=== PATIENT | female | born 1990 ===

== ENCOUNTER 2017-11-20 11:30 | Emergency (ER) | payer SELFPAY ==
[2017-11-20 11:38] VITALS: BMI 26.4
[2017-11-20 11:41] VITALS: BP 113/68; PULSE 80; RESP 18; TEMP 99; O2SAT 98
--- NOTE | 2017-11-20 11:45 | ED PDOC ---
Arrival/HPI - General Historian: Patient - History of Present Illness Time/Duration: < week Symptom Onset: Sudden Symptom Course: Worsening Quality: Aching Severity Level: 10 - General Chief Complaint: ENT Problem Time Seen by Provider: 11/20/17 11:32 - History of Present Illness Narrative History of Present Illness (Text): Patient is a 27 year old female with no significant past medical history presenting to the ED with left ear pain. Patient states that the ear pain started 5 days ago and has been getting worse. She describes the pain to be achy and 10/10 in severity. She admits to be using Q-tips a lot to clean her ears and tried over the counter earwax removal drops to try and treat the pain. She denies going swimming, having sick contacts, or recent travels. Patient admits to have decreased hearing on the left ear and have some headaches. She denies fevers, chills, cough, shortness of breath, chest pain, abdominal pain, or urinary symptoms. (Raza Rosa) Past Medical History - Provider Review Nursing Documentation Reviewed: Yes - Travel History Have you recently traveled outside [place] w/in the past 3 mons?: No - Past History Past History: No Previous - Infectious Disease Hx of Infectious Diseases: None - Pulmonary Hx Asthma: Yes - Psychiatric Hx Substance Use: No - Surgical History Hx Section: Yes (x1) Hx Tubal Ligation: Yes - Anesthesia Hx Anesthesia: Yes Hx Anesthesia Reactions: No Hx Malignant Hyperthermia: No Family/Social History - Physician Review Nursing Documentation Reviewed: Yes Family/Social History: No Known Family HX Smoking Status: Never Smoked Hx Alcohol Use: No Hx Substance Use: No Hx Substance Use Treatment: No Allergies/Home Meds Allergies/Adverse Reactions: Allergies No Known Allergies Allergy (Verified 11/20/17 11:37) Review of Systems - Physician Review All systems were reviewed & negative as marked: Yes - Review of Systems Constitutional: Normal. absent: Fevers, Night Sweats Eyes: Normal ENT: Hearing Changes (Decreased hearing on the left). absent: Tinnitus, TMJ Pain, Sore Throat, Rhinorrhea, Sinus Congestion Respiratory: Normal. absent: SOB, Cough, Sputum, Wheezing Cardiovascular: Normal. absent: Chest Pain Gastrointestinal: Normal. absent: Abdominal Pain, Constipation, Diarrhea, Nausea, Vomiting Genitourinary Female: Normal. absent: Dysuria, Frequency, Hematuria Musculoskeletal: Normal Skin: Normal. absent: Rash, Pruritis, Skin Lesions Neurological: Headache. absent: Dizziness Endocrine: Normal Hemo/Lymphatic: Normal Psychiatric: Normal. absent: Anxiety, Depression Physical Exam Vital Signs Reviewed: Yes Temperature: Afebrile Blood Pressure: Normal Pulse: Regular Respiratory Rate: Normal Appearance: Positive for: Well-Appearing, Non-Toxic, Uncomfortable Pain Distress: Severe Mental Status: Positive for: Alert and Oriented X 3 - Systems Exam Head: Present: Atraumatic, Normocephalic Pupils: Present: PERRL Extroacular Muscles: Present: EOMI Conjunctiva: Present: Normal Ears: Present: TM Perf (Perforated tympanic membrane on the left ear), Other ( Some cerumen and yellow discharge seen on left ear. Left pinna is slightly tender to palpation). No: Normal, NORMAL TM, Erythema, TM Bulging, Fluid Mouth: Present: Moist Mucous Membranes Neck: Present: Normal Range of Motion. No: MIDLINE TENDERNESS Respiratory/Chest: Present: Clear to Auscultation, Good Air Exchange. No: Respiratory Distress, Accessory Muscle Use Cardiovascular: Present: Regular Rate and Rhythm, Normal S1, S2. No: Murmurs Abdomen: No: Tenderness, Distention, Peritoneal Signs Upper Extremity: Present: Normal Inspection. No: Cyanosis, Edema Lower Extremity: Present: Normal Inspection. No: Edema Neurological: Present: GCS=15, CN II-XII Intact, Speech Normal Skin: Present: Warm, Dry, Normal Color. No: Rashes Lymphatic: No: Cervical Adenopathy Psychiatric: Present: Alert, Oriented x 3, Normal Insight, Normal Concentration Vital Signs Temp Pulse Resp BP Pulse Ox 11/20/17 11:40 99.0 F 80 18 113/68 98 Medical Decision Making ED Course and Treatment: Impression: Patient is a 27 year old female presenting to the ED with left ear pain. Differential Diagnosis included but are not limited to: - Otitis media - Otitis externa - Perforated tympanic membrane Plan: -- Ampicillin -- Ciprofloxacin/dexamethasone ear drops -- Tylenol Progress Notes: 11/20/17 12:19 - Sent patient home with amoxicillin and ciprodex ear drops. - Patient referred to ENT. - Patient is stable for discharge. (Raza Rosa) 11/20/17 12:27 Seen by resident and then evaluated by me. Normal oropharyngeal exam. Left TM : external pinna tenderness, no mastoid tenderness. Canal is narrowed with debris in canal with perforated tm. Right TM WNL. Patient denies recent swimming or trauma to ear. Unclear if this is otitis media that caused rupture of canal or simply otitis externa. Therefore will treat with drops and antibiotics. (Lynette Menezes) - Medication Orders Current Medication Orders: Discontinued Medications Acetaminophen (Tylenol 325mg Tab) 650 mg PO STAT STA Stop: 11/20/17 11:59 Disposition/Present on Arrival - Present on Arrival Any Indicators Present on Arrival: No History of DVT/PE: No History of Uncontrolled Diabetes: No Urinary Catheter: No History of Decub. Ulcer: No History Surgical Site Infection Following: None - Disposition Have Diagnosis and Disposition been Completed?: Yes Disposition Time: 12:17 Patient Plan: Discharge - Disposition Diagnosis: Perforated tympanic membrane, Otitis media Disposition: HOME/ ROUTINE Patient Problems: Current Active Problems Problem Status Onset Perforated tympanic membrane Acute Otitis media Acute Condition: GOOD Discharge Instructions (ExitCare): Ear Infections (Otitis Media), Ruptured Eardrum, Ruptured Eardrum (DC) Print Language: BELGIAN Additional Instructions: Follow-up with PMD within 2 days. Return to ED if condition worsens. Take full course of antibiotics and drops Prescriptions: Amoxicillin 500 mg PO TID #30 tablet Ciprofloxacin/Dexamethasone [Ciprodex 0.3%-0.1% 7.5 Ml] 3 drop BID #1 bottle Referrals: Aaron Zamorano DO [Staff Provider] - Follow up with primary Tamara Pablo MD [Medical Doctor] - Follow up with primary Forms: [employer] (Salvadorean)
== END 2017-11-20 12:45 | disposition home or self-care (01) ==
LOC: ED 11:30
DX: H66.92 Otitis media, unspecified, left ear (principal); H72.92 Unspecified perforation of tympanic membrane, left ear

== ENCOUNTER 2017-12-18 14:24 | Emergency (ER) | payer SELFPAY ==
[2017-12-18 14:25] VITALS: BMI 26.4
--- NOTE | 2017-12-18 14:34 | ED PDOC ---
Arrival/HPI - General Time Seen by Provider: 12/18/17 14:34 - History of Present Illness Narrative History of Present Illness (Text): 12/18/17 14:34 Past Medical History - Past History Past History: No Previous - Infectious Disease Hx of Infectious Diseases: None - Pulmonary Hx Asthma: Yes - Psychiatric Hx Substance Use: No - Surgical History Hx Section: Yes (x1) Hx Tubal Ligation: Yes - Anesthesia Hx Anesthesia: Yes Hx Anesthesia Reactions: No Hx Malignant Hyperthermia: No Family/Social History Smoking Status: Never Smoked Hx Alcohol Use: No Hx Substance Use: No Hx Substance Use Treatment: No Allergies/Home Meds Allergies/Adverse Reactions: Allergies No Known Allergies Allergy (Verified 11/20/17 11:37) Medical Decision Making ED Course and Treatment: 12/18/17 14:34 Impression: Differential Diagnosis included but are not limited to: Plan: -- Reassess and disposition Prior Visits: Notes and results from previous visits were reviewed. Progress Notes: - Scribe Statement The provider has reviewed the documentation as recorded by the Scribe Rocky Lopez Provider Scribe Attestation: All medical record entries made by the Scribe were at my direction and personally dictated by me. I have reviewed the chart and agree that the record accurately reflects my personal performance of the history, physical exam, medical decision making, and the department course for this patient. I have also personally directed, reviewed, and agree with the discharge instructions and disposition. Disposition/Present on Arrival - Present on Arrival History of DVT/PE: No History of Uncontrolled Diabetes: No Urinary Catheter: No History Surgical Site Infection Following: None - Disposition
[2017-12-18] MEDS ORDERED: Albuterol 0.083% Inhal Sol (2.5 mg/3 mL) UD ONE (14:45)
[2017-12-18] MEDS ORDERED: Albuterol-Ipratrop 3 mg / 0.5 (3 ml) UD IH STA (15:13)
[2017-12-18] MEDS ORDERED: Albuterol-Ipratrop 3 mg / 0.5 (3 ml) UD ONE (15:19)
--- NOTE | 2017-12-18 17:18 | ED PDOC ---
Arrival/HPI - General Historian: Patient - History of Present Illness Narrative History of Present Illness (Text): 12/18/17 17:15 27yo female with pmhx of Asthma who present with complaint of Nonproductive cough x one week, which is her typical asthma symptom. States she used her inhaler today without relieve and decided to come to the ED. She also complain of neck pain x 2weeks. Notes pain is with lateral movement of her neck. States she has been taking Ibuprofen 400mg with some relieve. She denies fever, chills, chest pain, sick contact, rash, nuchal rigidity, nausea, vomiting, abdominal pain, any other complaint. <Kelli Oliva A - Last Filed: 12/18/17 19:13> <Katty Will - Last Filed: 12/23/17 06:23> - General Chief Complaint: Shortness Of Breath Time Seen by Provider: 12/18/17 14:34 Past Medical History - Provider Review Nursing Documentation Reviewed: Yes - Past History Past History: No Previous - Infectious Disease Hx of Infectious Diseases: None - Cardiac Hx Cardiac Disorders: No - Pulmonary Hx Respiratory Disorders: Yes Hx Asthma: Yes - Neurological Hx Neurological Disorder: No - HEENT Hx HEENT Disorder: Yes Other/Comment: OTITIS - Renal Hx Renal Disorder: No - Endocrine/Metabolic Hx Endocrine Disorders: No - Hematological/Oncological Hx Blood Disorders: No - Integumentary Hx Dermatological Disorder: No - Musculoskeletal/Rheumatological Hx Musculoskeletal Disorders: No - Gastrointestinal Hx Gastrointestinal Disorders: No - Genitourinary/Gynecological Hx Genitourinary Disorders: No - Psychiatric Hx Psychophysiologic Disorder: No Hx Substance Use: No - Surgical History Hx Section: Yes Hx Tubal Ligation: Yes - Anesthesia Hx Anesthesia: Yes Hx Anesthesia Reactions: No Hx Malignant Hyperthermia: No <DirphucHappiness A - Last Filed: 12/18/17 19:13> Family/Social History - Physician Review Nursing Documentation Reviewed: Yes Family/Social History: Unknown Family HX Smoking Status: Never Smoked Hx Alcohol Use: No Hx Substance Use: No Hx Substance Use Treatment: No <DiruHappiness A - Last Filed: 12/18/17 19:13> Allergies/Home Meds <DirphucHappiness A - Last Filed: 12/18/17 19:13> <Katty Will - Last Filed: 12/23/17 06:23> Allergies/Adverse Reactions: Allergies No Known Allergies Allergy (Verified 12/18/17 14:36) Home Medications: Home Meds Medication Instructions Recorded Confirmed Albuterol 0.083% [Albuterol 0.083% 3 ml NEB Q6 PRN 12/18/17 12/18/17 Inhal [place] (2.5 mg/3 ml) UD] Review of Systems - Physician Review All systems were reviewed & negative as marked: Yes - Review of Systems Constitutional: Normal Eyes: Normal ENT: Normal Respiratory: Cough. absent: Sputum Cardiovascular: Normal Gastrointestinal: Normal Genitourinary Female: Normal Musculoskeletal: Neck Pain Skin: Normal Neurological: Normal Endocrine: Normal Hemo/Lymphatic: Normal Psychiatric: Normal <Diru,Happiness A - Last Filed: 12/18/17 19:13> Physical Exam Vital Signs Reviewed: Yes Vital Signs Temp Pulse Resp BP Pulse Ox 12/18/17 14:50 14 12/18/17 14:37 98.3 F 110 H 21 113/67 97 Temperature: Afebrile Blood Pressure: Normal Pulse: Regular Respiratory Rate: Normal Appearance: Positive for: Well-Appearing, Non-Toxic, Comfortable Pain Distress: None Mental Status: Positive for: Alert and Oriented X 3 - Systems Exam Head: Present: Atraumatic, Normocephalic Pupils: Present: PERRL Extroacular Muscles: Present: EOMI Conjunctiva: Present: Normal Mouth: Present: Moist Mucous Membranes Neck: Present: Normal Range of Motion. No: Meningeal Signs, MIDLINE TENDERNESS, Paraspinal Tenderness Respiratory/Chest: Present: Clear to Auscultation, Good Air Exchange, Wheezes (Mild wheeze at the bases). No: Respiratory Distress, Accessory Muscle Use, Decreased Breath Sounds, Rales, Retracting, Rhonchi Cardiovascular: Present: Regular Rate and Rhythm, Normal S1, S2. No: Murmurs Abdomen: No: Tenderness, Distention, Peritoneal Signs Back: Present: Normal Inspection Upper Extremity: Present: Normal Inspection. No: Cyanosis, Edema Lower Extremity: Present: Normal Inspection. No: Edema Neurological: Present: GCS=15, CN II-XII Intact, Speech Normal Skin: Present: Warm, Dry, Normal Color. No: Rashes Psychiatric: Present: Alert, Oriented x 3, Normal Insight, Normal Concentration <Diru,Happiness A - Last Filed: 12/18/17 19:13> Vital Signs Temp Pulse Resp BP Pulse Ox 12/18/17 17:40 98.6 F 72 18 121/70 98 12/18/17 14:50 14 12/18/17 14:37 98.3 F 110 H 21 113/67 97 <Katty Will - Last Filed: 12/23/17 06:23> Medical Decision Making ED Course and Treatment: 12/18/17 19:14 PT in ED for stated history. She was not in any respiratory distress on presentation. She had mild expiratory wheeze on exam. She was treated with Duoneb x 3 and prednisone. On re evaluation her lung was CTA b/l. She was speaking in full sentence and notes that her symptoms resolved. Her neck was supple and she had no meningeal signs. LS xray IMPRESSION: Normal cervical spine radiographs Result was DW the pt. She was DC home with Ibuprofen and flexeril for MS pain. Prednisone was given for her asthma and she was advised to continue with her inhaler as needed. Referred to her PMD/clinic. TRT ED for any new or worsening symptoms - RAD Interpretation Radiology Orders: 12/18/17 15:14 CERVICAL SPINE >18YR W/OBLIQUE [RAD] Stat - Medication Orders Current Medication Orders: Discontinued Medications Albuterol/Ipratropium (Duoneb 3 Mg/0.5 Mg (3 Ml) Ud) 3 ml IH Q15M STA Stop: 12/18/17 15:14 Last Admin: 12/18/17 15:19 Dose: 3 ml Prednisone (Prednisone Tab) 60 mg PO STAT ONE Stop: 12/18/17 15:14 Last Admin: 12/18/17 15:26 Dose: 60 mg <Kelli Oliva - Last Filed: 12/18/17 19:13> - RAD Interpretation Radiology Orders: 12/18/17 15:14 CERVICAL SPINE >18YR W/OBLIQUE [RAD] Stat - Medication Orders Current Medication Orders: Discontinued Medications Albuterol/Ipratropium (Duoneb 3 Mg/0.5 Mg (3 Ml) Ud) 3 ml IH Q15M STA Stop: 12/18/17 15:14 Last Admin: 12/18/17 15:19 Dose: 3 ml Ketorolac Tromethamine (Toradol) 30 mg IM STAT STA Stop: 12/18/17 17:23 Prednisone (Prednisone Tab) 60 mg PO STAT ONE Stop: 12/18/17 15:14 Last Admin: 12/18/17 15:26 Dose: 60 mg <Katty Will - Last Filed: 12/23/17 06:23> - PA / CLIENT TECHNOLOGIES SPECIALIST / Resident Statement / has reviewed & agrees with the documentation as recorded. <Katty Will - Last Filed: 12/23/17 06:23> Disposition/Present on Arrival - Present on Arrival Any Indicators Present on Arrival: No History of DVT/PE: No History of Uncontrolled Diabetes: No Urinary Catheter: No History of Decub. Ulcer: No History Surgical Site Infection Following: None - Disposition Have Diagnosis and Disposition been Completed?: Yes Disposition Time: 17:25 Patient Plan: Discharge <Kelli Oliva - Last Filed: 12/18/17 19:13> <Katty Will - Last Filed: 12/23/17 06:23> - Disposition Diagnosis: Cervical sprain, Asthma Disposition: HOME/ ROUTINE Condition: STABLE Discharge Instructions (ExitCare): Asthma in Adults, Cervical Muscle Strain (DC) Additional Instructions: Follow up with your doctor/clinic Return to ED for any new or worsening symptoms Prescriptions: Cyclobenzaprine [Cyclobenzaprine HCl] 10 mg PO BID #10 tab RX: Ibuprofen [Ibu] 400 mg PO Q6 #15 tablet RX: Prednisone 50 mg PO DAILY #4 tablet Referrals: Tamara Pablo MD [Medical Doctor] - Follow up with primary Forms: [employer] (Burkinan)
[2017-12-18 17:44] VITALS: BP 121/70; PULSE 72; RESP 18; TEMP 98.6; O2SAT 98
--- NOTE | 2017-12-18 17:48 | RAD ---
Date of service: 12/18/2017 PROCEDURE: Cervical Spine Radiographs. HISTORY: Pain. No history of recent/ related trauma provided COMPARISON: None. FINDINGS: BONES: Alignment maintained. No fracture. Dens Intact. DISC SPACES: Normal. SOFT TISSUES: Normal. No prevertebral soft tissue swelling. OTHER FINDINGS: None. IMPRESSION: Normal cervical spine radiographs
== END 2017-12-18 17:44 | disposition home or self-care (01) ==
LOC: ED 14:24
DX: J45.909 Unspecified asthma, uncomplicated (principal); S13.4XXA Sprain of ligaments of cervical spine, initial encounter; X58.XXXA Exposure to other specified factors, initial encounter; Y92.9 Unspecified place or not applicable

== ENCOUNTER 2018-05-28 13:27 | Emergency (ER) | payer SELFPAY ==
[2018-05-28 13:55] VITALS: BMI 25.7
[2018-05-28 13:59] VITALS: RESP 18; TEMP 98.5
[2018-05-28 14:42] VITALS: BP 108/76; PULSE 88; O2SAT 98
--- NOTE | 2018-05-28 15:58 | ED PDOC ---
Arrival/HPI - General Chief Complaint: ENT Problem Historian: Patient - History of Present Illness Narrative History of Present Illness (Text): 05/28/18 15:57 Patient is a 27 year old female, with a past medical history of asthma, who presents to the emergency department complaining of bilateral eye redness since yesterday. Patient states she feels as if both eyes were "glued shut". Patient also notes mild headache which is described as not worst of life. Patient informs of sick contact with her 3 children who have similar symptoms. Patient denies fever, headache, dizziness, neck stiffness, changes in vision, abdominal pain, nausea, vomiting, diarrhea, back pain, neck pain, or any other complaint. Time/Duration: 24 hours Symptom Onset: Gradual Symptom Course: Unchanged Activities at Onset: Light Context: Home Past Medical History - Provider Review Nursing Documentation Reviewed: Yes - Past History Past History: No Previous - Infectious Disease Hx of Infectious Diseases: None - Cardiac Hx Cardiac Disorders: No - Pulmonary Hx Respiratory Disorders: Yes Hx Asthma: Yes - Neurological Hx Neurological Disorder: No - HEENT Hx HEENT Disorder: Yes Other/Comment: OTITIS - Renal Hx Renal Disorder: No - Endocrine/Metabolic Hx Endocrine Disorders: No - Hematological/Oncological Hx Blood Disorders: No - Integumentary Hx Dermatological Disorder: No - Musculoskeletal/Rheumatological Hx Musculoskeletal Disorders: No - Gastrointestinal Hx Gastrointestinal Disorders: No - Genitourinary/Gynecological Hx Genitourinary Disorders: No - Psychiatric Hx Psychophysiologic Disorder: No Hx Substance Use: No - Surgical History Hx Section: Yes (x1) Hx Tubal Ligation: Yes - Anesthesia Hx Anesthesia: Yes Hx Anesthesia Reactions: No Hx Malignant Hyperthermia: No Family/Social History - Physician Review Nursing Documentation Reviewed: Yes Family/Social History: Unknown Family HX Smoking Status: Never Smoked Hx Alcohol Use: No Hx Substance Use: No Hx Substance Use Treatment: No Allergies/Home Meds Allergies/Adverse Reactions: Allergies No Known Allergies Allergy (Verified 05/28/18 13:56) Review of Systems - Physician Review All systems were reviewed & negative as marked: Yes - Review of Systems Constitutional: absent: Fevers Eyes: Other (eye redness bilaterally). absent: Vision Changes ENT: absent: Other (neck stiffness) Gastrointestinal: absent: Abdominal Pain, Diarrhea, Nausea, Vomiting Musculoskeletal: absent: Back Pain, Neck Pain Neurological: absent: Headache, Dizziness Physical Exam Vital Signs Reviewed: Yes Vital Signs Temp Pulse Resp BP Pulse Ox 05/28/18 14:42 88 18 108/76 98 05/28/18 13:58 98.5 F 90 18 107/69 100 Temperature: Afebrile Blood Pressure: Normal Pulse: Regular Respiratory Rate: Normal Appearance: Positive for: Well-Appearing, Non-Toxic, Comfortable Pain Distress: None Mental Status: Positive for: Alert and Oriented X 3 - Systems Exam Head: Present: Atraumatic, Normocephalic Pupils: Present: PERRL Extroacular Muscles: Present: EOMI Conjunctiva: Present: Injected (bilaterally) Mouth: Present: Moist Mucous Membranes Neck: Present: Normal Range of Motion Respiratory/Chest: Present: Clear to Auscultation, Good Air Exchange. No: Respiratory Distress, Accessory Muscle Use Cardiovascular: Present: Regular Rate and Rhythm, Normal S1, S2. No: Murmurs Abdomen: No: Tenderness, Distention, Peritoneal Signs Back: Present: Normal Inspection Upper Extremity: Present: Normal Inspection. No: Cyanosis, Edema Lower Extremity: Present: Normal Inspection. No: Edema Neurological: Present: GCS=15, CN II-XII Intact, Speech Normal Skin: Present: Warm, Dry, Normal Color. No: Rashes Psychiatric: Present: Alert, Oriented x 3, Normal Insight, Normal Concentration Medical Decision Making ED Course and Treatment: 05/28/18 15:57 Impression: Patient is a 27 year old female who presents to the emergency department complaining of eye redness bilaterally since yesterday. She informs of sick contact with her 3 children who have similar symptoms. Patient denies fever, neck stiffness, changes in vision, or any other complaint. Plan: -- Reassess and disposition Prior Visits: Notes and results from previous visits were reviewed. Progress Notes: - Scribe Statement The provider has reviewed the documentation as recorded by the Scribe Yoan Billingsley All medical record entries made by the Scribe were at my direction and personally dictated by me. I have reviewed the chart and agree that the record accurately reflects my personal performance of the history, physical exam, medical decision making, and the department course for this patient. I have also personally directed, reviewed, and agree with the discharge instructions and disposition. Disposition/Present on Arrival - Present on Arrival Any Indicators Present on Arrival: No History of DVT/PE: No History of Uncontrolled Diabetes: No Urinary Catheter: No History of Decub. Ulcer: No History Surgical Site Infection Following: None - Disposition Have Diagnosis and Disposition been Completed?: Yes Diagnosis: Conjunctivitis Disposition: HOME/ ROUTINE Disposition Time: 14:20 Condition: GOOD Discharge Instructions (ExitCare): Conjunctivitis ([place]) (DC) Additional Instructions: EYAL RANDALL, thank you for letting us take care of you today. The emergency medical care you received today was directed at your acute symptoms. If you were prescribed any medication, please fill it and take as directed. It may take several days for your symptoms to resolve. Return to the Emergency Department if your symptoms worsen, do not improve, or if you have any other problems. Please contact your doctor or call one of the physicians/clinics you have been referred to that are listed on the Patient Visit Information form that is included in your discharge packet. Bring any paperwork you were given at discharge with you along with any medications you are taking to your follow up visit. Our treatment cannot replace ongoing medical care by a primary care provider outside of the emergency department. Thank you for allowing the [facility] team to be part of your care today. Wash your hands whenever you touch your eyes. Follow up with the clinic in 3-5 days for outpatient care and management. Prescriptions: Ciprofloxacin 0.3% [Ciloxan 0.3% Ophth SOLN] 2 drop OU Q6 #1 bottle Ibuprofen [Motrin] 600 mg PO Q6 PRN #20 tab PRN Reason: Pain, Moderate (4-7) Referrals: [facility] [Outside] - Follow up with primary Tamara Pablo MD [Medical Doctor] - Follow up with primary Forms: [employer] (Citizen [place]), WORK NOTE
== END 2018-05-28 14:42 | disposition home or self-care (01) ==
LOC: ED 13:27
DX: H10.9 Unspecified conjunctivitis (principal)